=== PATIENT | female | born 1950 | race Caucasian/White ===

== ENCOUNTER 2017-06-03 11:42 | Emergency (ER) | payer MEDICARE ==
[~2017-06-03] VITALS: Ht 165.1 cm; Wt 73.6 kg
[2017-06-03 11:51] VITALS: BP 146/69; PULSE 51; RESP 16; TEMP 97.2; O2SAT 99
[2017-06-03] MEDS ORDERED: AMBI5TAB PO (12:02)
--- NOTE | 2017-06-03 12:04 | PD ---
HPI Chief Complaint: Medication Refill Request Time Seen by Provider: 12:00 Travel History International Travel<30 days: No Contact w/Intl Traveler<30days: No Traveled to known affect area: No History of Present Illness HPI The patient was seen and examined in the presence of the nurse. This patient complains of running out of her Ambien and requests a refill. She does not have any acute symptoms. Symptoms severity is mild PFSH Past Medical History Cardiovascular Problems: Yes (htn on meds) ?: Not Past Surgical History Hysterectomy: Yes Social History Alcohol Use: No Tobacco Use: No Substance Use: No Allergies-Medications Reported Meds & Prescriptions Reported Meds & Active Scripts Active Ambien (Zolpidem Tartrate) 5 Mg Tab 5 Mg PO HS PRN Review of Systems General / Constitutional: No: Fever HENT: No: Headaches Cardiovascular: No: Chest Pain or Discomfort Physical Exam Narrative Psych: Normal mood and affect. Normal insight and judgment. SKIN: Focused skin assessment reveals no rash or ulcers. Skin is warm and dry. Palpation shows no induration or nodules. Data Data Last Documented VS Vital Signs Date Time Temp Pulse Resp B/P (MAP) Pulse Ox O2 Delivery O2 Flow Rate FiO2 06/03/17 11:51 97.2 51 16 146/69 (94) 99 MDM Medical Decision Making Medical Screen Exam Complete: Yes Emergency Medical Condition: Yes Medical Record Reviewed: Yes Differential Diagnosis Insomnia, med refill, depression Narrative Course I have reviewed the patient's electronic medical record. I wrote her a refill for 5 Ambien which will give her several days to discuss with her physician Additional Instructions: The patient was advised to follow up with their physician and return if they worsen. Med/Other Pt SpecificInfo: Prescription(s) given Scripts Zolpidem (Ambien) 5 Mg Tab 5 MG PO HS Y for INSOMNIA, #5 TAB 0 Refills Prov: Simon Ivan MD 06/03/17 Disposition: 01 DISCHARGE HOME Condition: Stable Simon Ivan MD Jun 03, 2017 12:04
== END 2017-06-03 12:16 | disposition home or self-care (01) ==
LOC: PHEFT 11:42
DX: Z76.0 Encounter for issue of repeat prescription (principal); I10 Essential (primary) hypertension
CPT/HCPCS: 99281

== ENCOUNTER 2017-09-14 07:41 | Emergency (ER) | payer MEDICARE ==
[~2017-09-14] VITALS: Ht 165.1 cm; Wt 73.5 kg
[~2017-09-14 07:41] MED LIST: AMBI5TAB PO
[2017-09-14 07:43] VITALS: BP 134/67; PULSE 59; RESP 16; TEMP 97.6; O2SAT 100
[2017-09-14] MEDS ORDERED: ALDA50TA2 PO (08:08)
[2017-09-14] MEDS ORDERED: COZA50TA PO (08:08)
[2017-09-14] MEDS ORDERED: CYCL10TA PO (08:08)
[2017-09-14] MEDS ORDERED: PANT20 PO (08:08)
[2017-09-14] MEDS ORDERED: AMLO5TAB2 PO (08:08)
[2017-09-14] MEDS ORDERED: NADO20TA PO (08:08)
[2017-09-14] MEDS ORDERED: HYDR-3133 PO (08:08)
[2017-09-14] MEDS ORDERED: OXYC-103 PO (08:08)
--- NOTE | 2017-09-14 08:17 | PD ---
HPI Chief Complaint: Medication Refill Request Time Seen by Provider: 08:00 Travel History International Travel<30 days: No Contact w/Intl Traveler<30days: No Traveled to known affect area: No History of Present Illness HPI 67yo F with PMH of chronic back pain here requesting prescription refill for oxycodone. Pt follows with pain management Dr. Gonzalez and said she lose her prescription and her doctor is out of town so the office told her to come to the ED to see if she can get a prescription for a few days until he returns. Pt said she feels like she is starting to go through withdrawal and had some nonbloody diarrhea. Last oxycodone was 2 days ago. Denies any fever, chest pain, sob, n/v, abdominal pain, focal weakness or numbness. PFSH Past Medical History Cardiovascular Problems: Yes (htn on meds) Past Surgical History Hysterectomy: Yes Social History Alcohol Use: No Tobacco Use: No Substance Use: No Allergies-Medications (Allergen,Severity, Reaction): Coded Allergies: No Known Allergies (Verified Allergy, Unknown, 09/14/17) Reported Meds & Prescriptions Reported Meds & Active Scripts Active Ambien (Zolpidem Tartrate) 5 Mg Tab 5 Mg PO HS PRN Reported Flexeril (Cyclobenzaprine HCl) 10 Mg Tab 10 Mg PO TID Hydroxyzine HCl 25 Mg Tab 25 Mg PO QID PRN Aldactone (Spironolactone) 50 Mg Tab 50 Mg PO DAILY Protonix (Pantoprazole Sodium) 20 Mg Tab 20 Mg PO DAILY Cozaar (Losartan Potassium) 50 Mg Tab 50 Mg PO DAILY Nadolol 20 Mg Tab 20 Mg PO DAILY Amlodipine (Amlodipine Besylate) 5 Mg Tab 5 Mg PO DAILY Oxycontin (Oxycodone HCl) 10 Mg Tab 5 Mg PO TID PRN Review of Systems Except as stated in HPI: all other systems reviewed are Neg Physical Exam Narrative GENERAL: 67yo F not in distress. SKIN: Focused skin assessment warm/dry. HEAD: Atraumatic. Normocephalic. EYES: Pupils equal and round 3mm bilaterally. ENT: No nasal bleeding or discharge. Mucous membranes pink and moist. NECK: Trachea midline. No JVD. CARDIOVASCULAR: Regular rate and rhythm. No murmur appreciated. RESPIRATORY: No accessory muscle use. Clear to auscultation. Breath sounds equal bilaterally. GASTROINTESTINAL: Abdomen soft, non-tender, nondistended. MUSCULOSKELETAL: No obvious deformities. No clubbing. No cyanosis. No edema. NEUROLOGICAL: Awake and alert. No obvious cranial nerve deficits. Motor grossly within normal limits. Normal speech. PSYCHIATRIC: Appropriate mood and affect; insight and judgment normal. Data Data Last Documented VS Vital Signs Date Time Temp Pulse Resp B/P (MAP) Pulse Ox O2 Delivery O2 Flow Rate FiO2 09/14/17 07:43 97.6 59 16 134/67 (89) 100 Orders Orders Oxycodone (Roxicodone) (09/14/17 08:45) [facility] Medical Decision Making Medical Screen Exam Complete: Yes Emergency Medical Condition: Yes Differential Diagnosis Medication refill vs. opioid withdrawal Narrative Course 67yo F with chronic back pain here for prescription refill since she lose her oxycodone prescription. I looked her up in [facility] and saw that her last prescription for oxycodone was filled on 08/15/17 with a total of [address] Gonzalez. Pt also had #30 of ambien filled on 09/06. We called Dr. Gonzalez' s office and he is out of the country until Sunday so that's why they gave the patient their prescription early. Vital signs are stable and pt is resting comfortably. I will give her 1 dose of oxycodone 5mg PO here but will not prescribe her any oxycodone. She is to return follow up with Dr. Gonzalez as soon as possible and return to the ED if symptoms worsen. Diagnosis Primary Impression: Routine medical exam Patient Instructions: General Instructions Departure Forms: Tests/Procedures Additional Instructions: Please follow up with Dr. Gonzalez on Sunday. Return to the ED if symptoms worsen. Med/Other Pt SpecificInfo: No Change to Meds Disposition: 01 DISCHARGE HOME Condition: Stable Gay Canales DO Sep 14, 2017 08:17
== END 2017-09-14 09:21 | disposition home or self-care (01) ==
LOC: PHED 07:41
DX: Z00.00 Encounter for general adult medical examination without abnormal findings (principal); G89.29 Other chronic pain
CPT/HCPCS: 99283